=== PATIENT | female | born 1985 ===

== ENCOUNTER 2017-12-14 23:06 | Emergency (ER) | payer OTHER, BC ==
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
== END 2017-12-15 00:07 | disposition home or self-care (01) ==
LOC: MW.ED 23:06
DX: O9A.212 Injury, poisoning and certain other consequences of external causes complicating pregnancy, second trimester (principal); S30.1XXA Contusion of abdominal wall, initial encounter; Z3A.18 18 weeks gestation of pregnancy; Z88.8 Allergy status to other drugs, medicaments and biological substances; W20.8XXA Other cause of strike by thrown, projected or falling object, initial encounter
CPT/HCPCS: 99283

== ENCOUNTER 2018-05-05 15:29 | Inpatient (IN) | payer BC ==
[2018-05-05] MEDS ORDERED: Oxytocin/0.9 % Sodium Chloride 30 UNIT/500 ML BAG ONE (15:56)
[2018-05-05] MEDS ORDERED: Oxytocin 10 Units/1 ML SDV ONE (16:03)
[2018-05-05] MEDS ORDERED: Phenylephrine 1% 10 MG/ML SDV ONE (16:04)
[2018-05-05] MEDS ORDERED: Morphine PF 1 MG/ML Amp ONE (16:04)
[2018-05-05] MEDS ORDERED: Ondansetron 4 MG/2 ML SDV ONE (16:04)
[2018-05-05] MEDS ORDERED: ceFAZolin 2 GM in Premix Bag 1 BAG IV ONE (17:44)
[2018-05-05] MEDS ORDERED: Sodium Chloride 0.9% 2.5 ML Syringe FLUSH PRN (17:44)
[2018-05-05] MEDS ORDERED: Citric Acid/Sodium Citrate Solution 30 ML Cup PO ONE (17:44)
[2018-05-05] MEDS ORDERED: Sodium Chloride 0.9% 10 ML Syringe FLUSH PRN (17:44)
[2018-05-05] MEDS ORDERED: Oxytocin/0.9 % Sodium Chloride 30 UNIT/500 ML BAG IV SCH (17:45)
[2018-05-05] MEDS: Lactated Ringers 1,000 ML IV SCH ×2 (18:15→19:17)
[2018-05-05] MEDS ORDERED: ceFAZolin/Dextrose,Iso-Osmotic 2 GM/50 ML Duplex Bag IV ONE (18:37)
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
[2018-05-05] MEDS ORDERED: Octyl 2-Cyanoacrylate 1 Tube ONE (20:04)
[2018-05-05] MEDS ORDERED: Ondansetron 4 MG/2 ML SDV IV PRN (20:15)
[2018-05-05] MEDS ORDERED: Bisacodyl 10 MG Supp RECTAL PRN (20:15)
[2018-05-05] MEDS ORDERED: diphenhydrAMINE 50 MG/ML SDV IVPUSH PRN ×2 (20:15→20:41)
[2018-05-05] MEDS ORDERED: Acetaminophen/oxyCODONE 325-5 MG Tab PO PRN ×3 (20:15→20:47)
[2018-05-05] MEDS ORDERED: Lanolin 100% Cream 7 GM Tube TOP PRN (20:15)
[2018-05-05] MEDS ORDERED: Lactated Ringers 1,000 ML IV SCH (20:15)
--- NOTE | 2018-05-05 20:19 | PCM.OPNOTE ---
- General Post-Op/Procedure Note Date of Surgery/Procedure: 05/05/18 Operative Procedure(s): Repeat C/Section. Post-Op Diagnosis: Same Anesthesia Technique: Spinal Primary Surgeon: Terrance Reese Flower Buncher Or Picker: Nathaly Chen EBL in mLs: 650 Complications: None Condition: Good
[2018-05-05] MEDS ORDERED: Naloxone 0.4 MG/ML Syringe IVPUSH PRN (20:41)
[2018-05-05] MEDS ORDERED: Nalbuphine 10 MG/1 ML Vial IVPUSH PRN (20:41)
[2018-05-05] MEDS ORDERED: fentaNYL 100 MCG/2 ML SDV IVPUSH PRN (20:44)
--- NOTE | 2018-05-05 20:55 | PCM.POSTAN ---
POST ANESTHESIA ASSESSMENT - MENTAL STATUS Mental Status: Alert, Oriented - RESPIRATORY Respiratory Status: Respiratory Rate WNL, Airway Patent, O2 Saturation Stable - CARDIOVASCULAR CV Status: Pulse Rate WNL, Blood Pressure Stable - GASTROINTESTINAL GI Status: No Symptoms - PAIN Pain Score: 0 - POST OP HYDRATION Hydration Status: Adequate & Stable
[2018-05-05] MEDS: Ketorolac 30 MG/ML SDV IVPUSH SCH (21:00)
--- NOTE | 2018-05-06 02:37 | OR ---
SURGEON: Terrance Reese MD DATE OF PROCEDURE: PREOPERATIVE DIAGNOSES: 1. Intrauterine . 2. -induced hypertension. 3. Previous section, scheduled for elective repeat section on May 12. POSTOPERATIVE DIAGNOSES: 1. Intrauterine . 2. -induced hypertension. 3. Previous section, scheduled for elective repeat section on May 12. OPERATION PERFORMED: Repeat low-transverse section. NITRO MAN: Nathaly Chen CNM. ANESTHESIA: Spinal. ANESTHETISTS: Ewelina Gomes and Greg. ESTIMATED BLOOD LOSS: 650 mL. COMPLICATIONS: None. HOSPICE BEREAVEMENT COORDINATOR: Dr. Fairbanks. FINDING: Normal uterus, tubes and ovary and a male fetus. score reported to be 8 and 9. The weight is not available. INDICATION FOR SURGERY: This patient is 32. She had previous section. She is supposed to have elective repeat section on May 12. However, the patient presented to Labor and Delivery with headache and increased blood pressures. Her blood pressure was elevated. Urinalysis shows proteinuria and because of her PIH, a decision made to repeat her section today. PROCEDURE IN DETAIL: The patient was brought to the OR, properly identified and after adequate level of spinal anesthesia, the patient with a Ramsay catheter in the bladder, the patient was prepped and draped in sterile fashion as usual. Time-out was taken and the patient properly identified. Then, low transverse Pfannenstiel skin incision through the old scar was done. The Handy's fascia, rectus fascia was opened in direction of the incision. The 2 recti muscles were and peritoneal cavity was entered. Bladder flap was raised in the usual manner pushing the bladder away from the lower uterine segment. Low transverse uterine incision was done and extended manually with the hand. Fetus was in a vertex position, delivered without any problem. Placenta delivered spontaneously, complete and intact and repair of the lower uterine segment was done with 2-0 Vicryl continuous interlocking in 2 layers. Reperitonealization done with 3-0 Vicryl continuous and then the peritoneal cavity was evacuated completely from the blood and blood clot and closed with 3-0 Vicryl continuous. The rectus fascia was closed with double strand #1 PDS continuous, Handy's fascia with 3-0 Vicryl continuous, and the skin was closed with 3-0 Vicryl on a Polo needle in a subcuticular fashion and Dermabond. Instrument and sponge count were correct. The patient tolerated the procedure well, went to recovery room in stable general condition. STEVE / TYSON /[id number]
[2018-05-06] MEDS ORDERED: NIFEdipine 30 MG Tab.ER PO ONE ×2 (03:12→21:03)
[2018-05-06] MEDS: Ketorolac 30 MG/ML SDV IVPUSH SCH ×4 (03:28→21:18)
--- NOTE | 2018-05-06 09:19 | PCM48HPAN ---
Post Anesthesia Note - EVALUATION WITHIN 48HRS OF ANESTHETIC Vital Signs in Normal Range: Yes Patient Participated in Evaluation: Yes Respiratory Function Stable: Yes Airway Patent: Yes Cardiovascular Function Stable: Yes Hydration Status Stable: Yes Pain Control Satisfactory: Yes Nausea and Vomiting Control Satisfactory: Yes Pulse Rate: 79 Resp Rate: 18 Blood Pressure: 163/109 - COMMENTS/OBSERVATIONS Free Text/Narrative:: Patient denies any complaints
[2018-05-06] MEDS: Docusate Sodium 100 MG Cap PO SCH (09:23)
[2018-05-07] MEDS ORDERED: Ibuprofen 800 MG Tab PO PRN (03:00)
--- NOTE | 2018-05-07 03:51 | PCM.PNPP ---
- General Info Date of Service: 05/06/18 Functional Status: Reports: Pain Controlled - Review of Systems General: Reports: No Symptoms HEENT: Reports: No Symptoms Pulmonary: Reports: No Symptoms Cardiovascular: Reports: No Symptoms Gastrointestinal: Reports: No Symptoms Genitourinary: Reports: No Symptoms Musculoskeletal: Reports: No Symptoms Skin: Reports: No Symptoms Neurological: Reports: No Symptoms Psychiatric: Reports: No Symptoms - General Info Date of Service: 05/06/18 - Patient Data Vital Signs - Most Recent: Last Vital Signs Temp 37.1 C 05/07/18 00:00 Pulse 94 05/07/18 00:00 Resp 16 05/07/18 00:00 BP 157/105 H 05/07/18 00:00 Pulse Ox 96 05/07/18 00:00 Weight - Most Recent: 90.265 kg I&O - Last 24 Hours: Intake & Output 05/06/18 05/06/18 05/07/18 14:59 22:59 06:59 Output Total 500 950 Balance -500 -950 Lab Results - Last 24 Hours: Laboratory Results - last 24 hr 05/06/18 Range/Units 05:15 Hgb 11.8 L (12.0-16.0) g/dL Hct 36.0 (36.0-46.0) % Med Orders - Current: Current Medications Bisacodyl (Dulcolax) 10 mg RECTAL ONETIME PRN PRN Reason: Constipation Diphenhydramine HCl (Benadryl) 25 mg IVPUSH Q6H PRN PRN Reason: Itching or Nausea Docusate Sodium (Colace) 100 mg PO BID [facility] Last Admin: 05/06/18 09:23 Dose: 100 mg Emollient Ointment (Lansinoh Hpa) 0 gm TOP ASDIRECTED PRN PRN Reason: Sore Nipples Fentanyl (Sublimaze) 25 - 50 mcg IVPUSH Q30M PRN PRN Reason: Pain Oxytocin/Sodium Chloride (Oxytocin 30 Unit/500 Ml-Ns) 30 unit in 500 mls @ 250 mls/hr IV TITRATE [facility] Lactated Ringer's (Ringers, Lactated) 1,000 mls @ 500 mls/hr IV BOLUS [facility] Last Admin: 05/05/18 19:17 Dose: 999 mls/hr Lactated Ringer's (Ringers, Lactated) 1,000 mls @ 125 mls/hr IV ASDIRECTED [facility] Last Admin: 05/05/18 23:06 Dose: 125 mls/hr Ibuprofen (Motrin) 800 mg PO Q8H PRN PRN Reason: mild pain or fever Ondansetron HCl (Zofran) 4 mg IV Q4H PRN PRN Reason: Nausea/Vomiting Oxycodone/Acetaminophen (Percocet 325-5 Mg) 1 tab PO Q4H PRN PRN Reason: Pain (moderate 4-6) Oxycodone/Acetaminophen (Percocet 325-5 Mg) 2 tab PO Q6H PRN PRN Reason: Pain (moderate 4-6) Sodium Chloride (Saline Flush) 10 ml FLUSH ASDIRECTED PRN PRN Reason: Keep Vein Open Sodium Chloride (Saline Flush) 2.5 ml FLUSH ASDIRECTED PRN PRN Reason: Keep Vein Open Discontinued Medications Cefazolin Sodium/Dextrose (Ancef) Confirm Administered Dose 2 gm IV .STK-MED ONE Stop: 05/05/18 18:38 Citric Acid/Sodium Citrate (Bicitra Solution) 30 ml PO ONETIME ONE Stop: 05/05/18 17:45 Last Admin: 05/05/18 19:17 Dose: 30 ml Diphenhydramine HCl (Benadryl) 25 mg IVPUSH Q4H PRN PRN Reason: Itching Stop: 05/06/18 20:42 Oxytocin/Sodium Chloride (Oxytocin 30 Unit/500 Ml-Ns) Confirm Administered Dose 30 unit in 500 mls @ as directed .ROUTE .STK-MED ONE Stop: 05/05/18 15:57 Cefazolin Sodium/Dextrose 2 gm (/ Premix) 50 mls @ 100 mls/hr IV ONETIME ONE Stop: 05/05/18 18:13 Ketorolac Tromethamine (Toradol) 30 mg IVPUSH Q6H [facility] Stop: 05/06/18 21:01 Last Admin: 05/06/18 21:18 Dose: 30 mg Morphine Sulfate (Duramorph Pf) Confirm Administered Dose 1 mg .ROUTE .STK-MED ONE Stop: 05/05/18 16:05 Nalbuphine HCl (Nubain) 5 mg IVPUSH Q3H PRN PRN Reason: Pruritis Stop: 05/06/18 20:42 Naloxone HCl (Narcan) 0.1 mg IVPUSH ONETIME PRN PRN Reason: Other Stop: 05/06/18 20:43 Nifedipine (Procardia Xl) 30 mg PO ONETIME ONE Stop: 05/06/18 03:13 Last Admin: 05/06/18 03:29 Dose: 30 mg Nifedipine (Procardia Xl) 30 mg PO ONETIME ONE Stop: 05/06/18 21:04 Octyl Cyanoacrylate (Dermabond Advance) Confirm Administered Dose 1 applic .ROUTE .STK-MED ONE Stop: 05/05/18 20:05 Ondansetron HCl (Zofran) Confirm Administered Dose 4 mg .ROUTE .STK-MED ONE Stop: 05/05/18 16:05 Oxycodone/Acetaminophen (Percocet 325-5 Mg) 2 tab PO Q4H PRN PRN Reason: Pain (moderate 4-6) Oxytocin (Pitocin) Confirm Administered Dose 20 unit .ROUTE .STK-MED ONE Stop: 05/05/18 16:04 Phenylephrine HCl (Galdino-Synephrine) Confirm Administered Dose 10 mg .ROUTE .STK- MED ONE Stop: 05/05/18 16:05 - Infant Interaction Disposition, : [place] in Room with Family Infant Interaction: Holding Infant Feeding: Attempted ; Nursed Fair/Poor Support Person: - Recovery Exam Fundal Tone: Firm Fundal Level: At Umbilicus Fundal Placement: Midline Lochia Amount: Scant Lochia Color: Rubra/Red Perineum Description: Intact, Minimal Bruising/Swelling Episiotomy/Laceration: None Bladder Status: Nonpalpable Urinary Elimination: Voided - Exam General: Alert, Oriented HEENT: Pupils Equal Neck: Supple Lungs: Clear to Auscultation, Normal Respiratory Effort Cardiovascular: Regular Rate, Regular Rhythm GI/Abdominal Exam: Normal Bowel Sounds, Soft, Non-Tender, No Organomegaly, No Distention, No Abnormal Bruit, No Mass, Pelvis Stable Extremities: Normal Inspection, Normal Range of Motion, Non-Tender, No Pedal Edema, Normal Capillary Refill Skin: Warm, Dry, Intact Wound/Incisions: Healing Well Neurological: No New Focal Deficit Psy/Mental Status: Alert, Normal Affect, Normal Mood - Problem List Review Problem List Initiated/Reviewed/Updated: Yes - My Orders Last 24 Hours: My Active Orders 05/06/18 Breakfast Regular Diet [DIET] 05/07/18 03:00 Ibuprofen [Motrin] 800 mg PO Q8H PRN - Assessment Assessment:: S/P C/section for elective repeat C/section. - Plan Plan:: Admit A: 32yo EDC 05/17/2018 38 2/7wks, B+, RI, GBS neg, Elevated BP with proteinuria RPCR 10.1, Hx of prior . P: Admit, OR team advised of RCS this pm, Anes evaluated pt.
[2018-05-07] MEDS: Docusate Sodium 100 MG Cap PO SCH (09:44)
--- NOTE | 2018-05-07 11:15 | PCM.DCSUM1 ---
Discharge Summary - Hospital Course Diagnosis: Stroke: No - Discharge Data Discharge Date: 05/07/18 Discharge Disposition: Home, Self-Care 01 Condition: Good - Patient Summary/Data Operative Procedure(s) Performed: Repeat C/Section. - Patient Instructions Diet: Usual Diet as Tolerated Activity: As Tolerated Driving: Do Not Drive Showering/Bathing: May Shower Wound/Incision Care: Keep Operative Site/Wound Site Clean and Dry Notify Provider of: Fever, Increased Pain - Discharge Plan Home Medications: Home Meds Pnv No.122/Iron/Folic Acid [ Multi Tablet] 1 each PO DAILY 12/14/17 [ History] - General Info Date of Service: 05/07/18 Functional Status: Reports: Pain Controlled - Review of Systems General: Reports: No Symptoms HEENT: Reports: No Symptoms Pulmonary: Reports: No Symptoms Cardiovascular: Reports: No Symptoms Gastrointestinal: Reports: No Symptoms Genitourinary: Reports: No Symptoms Musculoskeletal: Reports: No Symptoms Skin: Reports: No Symptoms Neurological: Reports: No Symptoms Psychiatric: Reports: No Symptoms - Patient Data Vitals - Most Recent: Last Vital Signs Temp 36.9 C 05/07/18 04:00 Pulse 88 05/07/18 08:09 Resp 14 05/07/18 08:09 BP 139/92 H 05/07/18 08:09 Pulse Ox 97 05/07/18 08:09 Weight - Most Recent: 90.265 kg I&O - Last 24 hours: Intake & Output 05/06/18 05/07/18 05/07/18 22:59 06:59 14:59 Output Total 950 Balance -950 Med Orders - Current: Current Medications Bisacodyl (Dulcolax) 10 mg RECTAL ONETIME PRN PRN Reason: Constipation Diphenhydramine HCl (Benadryl) 25 mg IVPUSH Q6H PRN PRN Reason: Itching or Nausea Docusate Sodium (Colace) 100 mg PO BID [facility] Last Admin: 05/07/18 09:44 Dose: 100 mg Emollient Ointment (Lansinoh Hpa) 0 gm TOP ASDIRECTED PRN PRN Reason: Sore Nipples Fentanyl (Sublimaze) 25 - 50 mcg IVPUSH Q30M PRN PRN Reason: Pain Oxytocin/Sodium Chloride (Oxytocin 30 Unit/500 Ml-Ns) 30 unit in 500 mls @ 250 mls/hr IV TITRATE [facility] Lactated Ringer's (Ringers, Lactated) 1,000 mls @ 500 mls/hr IV BOLUS [facility] Last Admin: 05/05/18 19:17 Dose: 999 mls/hr Lactated Ringer's (Ringers, Lactated) 1,000 mls @ 125 mls/hr IV ASDIRECTED [facility] Last Admin: 05/05/18 23:06 Dose: 125 mls/hr Ibuprofen (Motrin) 800 mg PO Q8H PRN PRN Reason: mild pain or fever Last Admin: 05/07/18 04:49 Dose: 800 mg Ondansetron HCl (Zofran) 4 mg IV Q4H PRN PRN Reason: Nausea/Vomiting Oxycodone/Acetaminophen (Percocet 325-5 Mg) 1 tab PO Q4H PRN PRN Reason: Pain (moderate 4-6) Oxycodone/Acetaminophen (Percocet 325-5 Mg) 2 tab PO Q6H PRN PRN Reason: Pain (moderate 4-6) Last Admin: 05/07/18 04:49 Dose: 2 tab Sodium Chloride (Saline Flush) 10 ml FLUSH ASDIRECTED PRN PRN Reason: Keep Vein Open Sodium Chloride (Saline Flush) 2.5 ml FLUSH ASDIRECTED PRN PRN Reason: Keep Vein Open Discontinued Medications Cefazolin Sodium/Dextrose (Ancef) Confirm Administered Dose 2 gm IV .STK-MED ONE Stop: 05/05/18 18:38 Citric Acid/Sodium Citrate (Bicitra Solution) 30 ml PO ONETIME ONE Stop: 05/05/18 17:45 Last Admin: 05/05/18 19:17 Dose: 30 ml Diphenhydramine HCl (Benadryl) 25 mg IVPUSH Q4H PRN PRN Reason: Itching Stop: 05/06/18 20:42 Oxytocin/Sodium Chloride (Oxytocin 30 Unit/500 Ml-Ns) Confirm Administered Dose 30 unit in 500 mls @ as directed .ROUTE .STK-MED ONE Stop: 05/05/18 15:57 Cefazolin Sodium/Dextrose 2 gm (/ Premix) 50 mls @ 100 mls/hr IV ONETIME ONE Stop: 05/05/18 18:13 Ketorolac Tromethamine (Toradol) 30 mg IVPUSH Q6H [facility] Stop: 05/06/18 21:01 Last Admin: 05/06/18 21:18 Dose: 30 mg Morphine Sulfate (Duramorph Pf) Confirm Administered Dose 1 mg .ROUTE .STK-MED ONE Stop: 05/05/18 16:05 Nalbuphine HCl (Nubain) 5 mg IVPUSH Q3H PRN PRN Reason: Pruritis Stop: 05/06/18 20:42 Naloxone HCl (Narcan) 0.1 mg IVPUSH ONETIME PRN PRN Reason: Other Stop: 05/06/18 20:43 Nifedipine (Procardia Xl) 30 mg PO ONETIME ONE Stop: 05/06/18 03:13 Last Admin: 05/06/18 03:29 Dose: 30 mg Nifedipine (Procardia Xl) 30 mg PO ONETIME ONE Stop: 05/06/18 21:04 Last Admin: 05/06/18 21:20 Dose: 30 mg Octyl Cyanoacrylate (Dermabond Advance) Confirm Administered Dose 1 applic .ROUTE .STK-MED ONE Stop: 05/05/18 20:05 Ondansetron HCl (Zofran) Confirm Administered Dose 4 mg .ROUTE .STK-MED ONE Stop: 05/05/18 16:05 Oxycodone/Acetaminophen (Percocet 325-5 Mg) 2 tab PO Q4H PRN PRN Reason: Pain (moderate 4-6) Oxytocin (Pitocin) Confirm Administered Dose 20 unit .ROUTE .STK-MED ONE Stop: 05/05/18 16:04 Phenylephrine HCl (Galdino-Synephrine) Confirm Administered Dose 10 mg .ROUTE .STK- MED ONE Stop: 05/05/18 16:05 - Exam General: Reports: Alert, Oriented HEENT: Reports: Pupils Equal, Pupils Reactive, EOMI, Mucous Membr. Moist/[place] Neck: Reports: Supple Lungs: Reports: Clear to Auscultation, Normal Respiratory Effort Cardiovascular: Reports: Regular Rate, Regular Rhythm GI/Abdominal Exam: Normal Bowel Sounds, Soft, Non-Tender, No Organomegaly, No Distention, No Abnormal Bruit, No Mass, Pelvis Stable (Female) Exam: Normal External Exam, Normal Speculum Exam, Normal Bimanual Exam Rectal (Female) Exam: Normal Exam, Normal Rectal Tone Back Exam: Reports: Normal Inspection, Full Range of Motion Extremities: Normal Inspection, Normal Range of Motion, Non-Tender, No Pedal Edema, Normal Capillary Refill Skin: Reports: Warm, Dry, Intact Wound/Incisions: Reports: Healing Well Neurological: Reports: No New Focal Deficit Psy/Mental Status: Reports: Alert, Normal Affect, Normal Mood
== END 2018-05-07 13:30 | disposition home or self-care (01) | DRG 540 ==
LOC: MW.OBCHECK 15:29 → MW.OB 16:12 → MW.OBCHECK 20:22 → MW.OB 20:27 → OBSVTOIN 20:27 → MW.OB 22:31
PROVIDERS: ADMIT Obstetrics & Gynecology; ATTEND Obstetrics & Gynecology
PROC: 10D00Z1 Extraction of Products of Conception, Low, Open Approach (ICD-10-PCS; principal; 2018-05-05)
DX: O14.94 Unspecified pre-eclampsia, complicating childbirth (principal); O34.211 Maternal care for low transverse scar from previous cesarean delivery; Z3A.38 38 weeks gestation of pregnancy; Z37.0 Single live birth
CPT/HCPCS: 36415; 59025; 85014; 85018; 86850; 86900; 86901; A9270-GY; J0690; J1885; J2274; J2370; J2405; J2590; J7120

== ENCOUNTER 2019-01-08 14:16 | Emergency (ER) | payer BC ==
[2019-01-08] MEDS ORDERED: Diphtheria,Pertussis(Acell),Tetanus Vaccine 0.5 ML Syringe IM ONE (14:19)
--- NOTE | 2019-01-08 14:21 | EDM.PDOC ---
ED HPI GENERAL MEDICAL PROBLEM - General Chief Complaint: Laceration Stated Complaint: CUT RT HAND WHILE COOKING Time Seen by Provider: 01/08/19 14:20 Source of Information: Reports: Patient - History of Present Illness INITIAL COMMENTS - FREE TEXT/NARRATIVE: HISTORY AND PHYSICAL: History of present illness: [Patient washing dishes prior to arrival she cut her right fifth digit palmar surface interphalangeal joint on washing the dishes tendon function is intact pre-and post suture Fever nausea vomiting chills sweats no redness warmth or exudate for culture ] Review of systems: As per history of present illness and below otherwise all systems reviewed and negative. Past medical history: As per history of present illness and as reviewed below otherwise noncontributory. Surgical history: As per history of present illness and as reviewed below otherwise noncontributory. Social history: No reported history of drug or alcohol abuse. Family history: As per history of present illness and as reviewed below otherwise noncontributory. Physical exam: HEENT: Atraumatic, normocephalic, pupils reactive, negative for conjunctival pallor or scleral icterus, mucous membranes moist, throat clear, neck supple, nontender, trachea midline. Lungs: Clear to auscultation, breath sounds equal bilaterally, chest nontender. Heart: S1S2, regular, negative for clicks, rubs, or JVD. Abdomen: Soft, nondistended, nontender. Negative for masses or hepatosplenomegaly. Negative for costovertebral tenderness. Pelvis: Stable nontender. Genitourinary: Deferred. Rectal: Deferred. Extremities: Atraumatic, negative for cords or calf pain. Neurovascular unremarkable. Neuro: Awake, alert, oriented. Cranial nerves II through XII unremarkable. Cerebellum unremarkable. Motor and sensory unremarkable throughout. Exam nonfocal. Skin as per history of present illness otherwise unremarkable Diagnostics: [Emi] Therapeutics: [T dap Lidocaine Wound cleansed and explored #3 4-0 Prolene sutures interrupted all complications no complaint Sutures out in 10 days Bacitracin Telfa tube dressing Entered wound care instruction ] Impression: [ 0.5 cm linear laceration, simple ] Definitive disposition and diagnosis as appropriate pending reevaluation and review of above. Right Finger-Little Pain Score (Numeric/FACES): 8 - Related Data Allergies Allergy/AdvReac Type Severity Reaction Status Date / Time chloroquine Allergy Itching Verified 01/08/19 14:18 Home Meds: Home Meds . 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: Musculoskeletal History: Reports: None Psychiatric History: Reports: None Endocrine/Metabolic History: Reports: None Hematologic History: Reports: None Immunologic History: Reports: None Oncologic (Cancer) History: Reports: None Dermatologic History: Reports: None - Infectious Disease History Infectious Disease History: Reports: None Other Infectious Disease History: maleria in [place] 8+ years ago - Past Surgical History Female Surgical History: Reports: Section Social & Family History - Family History Family Medical History: Noncontributory - Caffeine Use Caffeine Use: Reports: None ED ROS GENERAL - Review of Systems Review Of Systems: See Below ED EXAM, SKIN/RASH Exam: See Below Course - Vital Signs Last Recorded V/S: Last Vital Signs Temp 98.7 F 01/08/19 14:19 Pulse 75 01/08/19 14:19 Resp 24 H 01/08/19 14:19 BP 117/80 01/08/19 14:19 Pulse Ox 97 01/08/19 14:19 - Orders/Labs/Meds Orders: Active Orders 24 hr Category Date Time Status Vaccines to be Administered [RC] PER UNIT ROUTINE Care 01/08/19 14:20 Active Meds: Medications Discontinued Medications Generic Name Dose Route Start Last Admin Trade Name Freq PRN Reason Stop Dose Admin Diphtheria/Tetanus/Acell Pertussis 0.5 ml 01/08/19 14:19 01/08/19 14:28 Adacel IM 01/08/19 14:20 0.5 ml .ONCE ONE Administration Lidocaine HCl 5 ml 01/08/19 14:20 01/08/19 14:31 Xylocaine-Mpf 1% INJECT 01/08/19 14:21 5 ml ONETIME ONE Administration Departure - Departure Time of Disposition: 14:50 Disposition: Home, Self-Care 01 Condition: Good Clinical Impression: Laceration - Discharge Information Referrals: PCP,Unknown [Primary Care Provider] - Forms: ED Department Discharge Additional Instructions: Standard wound care instructions Keep wound clean and dry for 48 hours Bacitracin Telfa tube dressing Sutures out in 10 days Medication as prescribed Return if signs of an infection which would include fever nausea vomiting chills sweats redness warmth or pus drainage should this develop [facility] [address] [place] [id number] The following information is given to patients seen in the emergency department who are being discharged to home. This information is to outline your options for follow-up care. We provide all patients seen in our emergency department with a follow-up referral. The need for follow-up, as well as the timing and circumstances, are variable depending upon the specifics of your emergency department visit. If you don't have a primary care physician on staff, we will provide you with a referral. We always advise you to contact your personal physician following an emergency department visit to inform them of the circumstance of the visit and for follow-up with them and/or the need for any referrals to a consulting specialist. The emergency department will also refer you to a specialist when appropriate. This referral assures that you have the opportunity for follow-up care with a specialist. All of these measure are taken in an effort to provide you with optimal care, which includes your follow-up. Under all circumstances we always encourage you to contact your private physician who remains a resource for coordinating your care. When calling for follow-up care, please make the office aware that this follow-up is from your recent emergency room visit. If for any reason you are refused follow-up, please contact the [facility] emergency department at and asked to speak to the emergency department charge nurse. - My Orders Last 24 Hours: My Active Orders 01/08/19 14:20 Vaccines to be Administered [RC] PER UNIT ROUTINE - Assessment/Plan Last 24 Hours: My Active Orders 01/08/19 14:20 Vaccines to be Administered [RC] PER UNIT ROUTINE
[2019-01-08] MEDS ORDERED: Bacitracin Oint 1 GM U/D Packet ONE (14:55)
[2019-01-08] MEDS ORDERED: Bacitracin Oint 1 GM U/D Packet TOP ONE (14:57)
== END 2019-01-08 15:07 | disposition home or self-care (01) ==
LOC: MW.ED 14:16
DX: S61.216A Laceration without foreign body of right little finger without damage to nail, initial encounter (principal); Z88.8 Allergy status to other drugs, medicaments and biological substances; W45.8XXA Other foreign body or object entering through skin, initial encounter; Y93.G1 Activity, food preparation and clean up
CPT/HCPCS: 12001; 90471; 90715; 99282; J2001

== ENCOUNTER 2019-01-17 12:04 | Emergency (ER) | payer BC | END 2019-01-17 12:14 | disposition home or self-care (01) | LOC: MW.ED 12:04 | DX: Z53.21 Procedure and treatment not carried out due to patient leaving prior to being seen by health care provider (principal) ==